=== PATIENT | female | born 1985 | race Caucasian/White ===

== ENCOUNTER → 2025-03-01 10:22 | Outpatient (REF) | payer OTHER, SELFPAY | LOC: RAD 10:22 | PROVIDERS: ATTENDING PHYSICIAN Student in an Organized Health Care Education/Training Program | DX: I83.90 Asymptomatic varicose veins of unspecified lower extremity (principal) | CPT/HCPCS: 93971 ==

== ENCOUNTER → 2025-03-23 09:50 | Outpatient (REF) | payer OTHER, SELFPAY | LOC: HWRCS 09:50 | PROVIDERS: ATTENDING PHYSICIAN Nuclear Medicine Nuclear Cardiology | DX: R00.2 Palpitations (principal); R93.89 Abnormal findings on diagnostic imaging of other specified body structures; I27.20 Pulmonary hypertension, unspecified | CPT/HCPCS: 93306 ==